=== PATIENT | female | born 1955 | race Caucasian/White ===

== ENCOUNTER 2017-04-10 15:33 | Emergency (ER) | payer MEDICARE, OTHER ==
[2017-04-10] MEDS ORDERED: NORMAL SALINE 1000 ML 1,000 ML IV ONE (16:03)
--- NOTE | 2017-04-10 16:07 | ER Document Report ---
ED Medical Screen (RME) - General Chief Complaint: Skin Problem Stated Complaint: POSSIBLE ABCESS Time Seen by Provider: 04/10/17 15:56 Notes: Patient recently had spinal surgery at [facility]. She states that she is also recently been seen an orthopedic surgeon at [facility] in [place]. She states she was seeing them for another injury to the hand. While there she mentioned that she felt she may have an abscess at the top of her spinal incision. The doctor at [facility], Dr. Scott, performed an incision and drainage and started the patient on antibiotics. Today she went back to see him for a dressing change and he states that he noticed he could now see bone. He states that he called neurosurgery who instructed the patient to come to the emergency department. He states that he instructed the patient to go to the hospital in [place] if possible. Patient here states that she feels fine has had no fever sweats or chills. I did call and speak with Dr. Scott, who can be reached at [phone]. TRAVEL OUTSIDE OF THE [place] IN LAST 30 DAYS: No - Related Data Allergies/Adverse Reactions: Penicillins Allergy (Verified 04/10/17 15:39) Anaphylaxis Home Medications: Current Home Medications Amphetamine [Adzenys Xr-Odt 18.8 mg Tablet] 20 mg PO ASDIR PRN 04/10/17 [History ] Clindamycin HCl 1 cap PO Q6H 04/10/17 [History] Diazepam [Diazepam] 1 tab PO BID 04/10/17 [History] Sertraline HCl [Sertraline HCl] 2 tab PO DAILY 04/10/17 [History] Sulfamethoxazole/Trimethoprim [Sulfamethoxazole-Tmp Ds Tablet] 1 tab PO Q12 [History] Past Medical History Renal/ Medical History: Denies: Hx Peritoneal Dialysis Physical Exam - Vital signs Vitals: Temp Pulse Resp BP Pulse Ox 98.3 F 96 18 167/93 H 98 04/10/17 15:39 04/10/17 15:39 04/10/17 15:39 04/10/17 15:39 04/10/17 15:39 Course - Vital Signs Vital signs: Temp Pulse Resp BP Pulse Ox 98.3 F 96 18 167/93 H 98 04/10/17 15:39 04/10/17 15:39 04/10/17 15:39 04/10/17 15:39 04/10/17 15:39
[2017-04-10] MEDS ORDERED: VANCOMYCIN HCL INJ 1000 MG VIAL IV ONE (16:08)
[2017-04-10 16:36] LABS: ABSOLUTE BASOPHILS # (AUTO) 0.1 10^3/uL (0.0-0.2); ABSOLUTE EOSINOPHILS # (AUTO) 0.2 10^3/uL (0.0-0.6); ABSOLUTE LYMPHOCYTES (AUTO) 1.5 10^3/uL (0.5-4.7); ABSOLUTE MONOCYTES (AUTO) 0.6 10^3/uL (0.1-1.4); ABSOLUTE NEUT (AUTO) 5.2 10^3/uL (1.7-8.2); BASOPHILS % (AUTO) 1.5 % (0-2); EOSINOPHILS % (AUTO) 2.3 % (0-6); HEMATOCRIT 42.1 % (36.0-47.0); HEMOGLOBIN 14.7 g/dL (12.0-15.5); LYMPHOCYTES % (AUTO) 19.9 % (13-45); MEAN CORPUSCULAR HEMOGLOBIN 35.4 pg (27.0-33.4); MEAN CORPUSCULAR VOLUME 101 fl (80-97); MONOCYTES % (AUTO) 7.9 % (3-13); RED BLOOD COUNT 4.17 10^6/uL (3.72-5.28); RED CELL DISTRIBUTION WIDTH 13.4 % (11.5-14.0); SEGMENTED NEUTROPHILS % (AUTO) 68.4 % (42-78); WHITE BLOOD COUNT 7.6 10^3/uL (4.0-10.5)
[2017-04-10 16:48] LABS: ALANINE AMINOTRANSFERASE 29 U/L (9-52); ALBUMIN 4.4 g/dL (3.5-5.0); ALKALINE PHOSPHATASE 134 U/L (38-126); ANION GAP 13 (5-19); ASPARTATE AMINO TRANSFERASE 25 U/L (14-36); BILIRUBIN,DIRECT 0.3 mg/dL (0.0-0.4); BILIRUBIN,TOTAL 0.3 mg/dL (0.2-1.3); BLOOD UREA NITROGEN 6 mg/dL (7-20); CALCIUM 9.7 mg/dL (8.4-10.2); CARBON DIOXIDE 24 mmol/L (22-30); CHLORIDE 100 mmol/L (98-107); CREATININE RESULT 0.78 mg/dL (0.52-1.25); GLUCOSE 87 mg/dL (75-110); POTASSIUM 4.3 mmol/L (3.6-5.0); SODIUM 136.8 mmol/L (137-145); TOTAL PROTEIN 7.2 g/dL (6.3-8.2)
--- NOTE | 2017-04-10 17:27 | ER Document Report ---
ED Skin Rash/Insect Bite/Abscs - General Chief Complaint: Skin Problem Stated Complaint: POSSIBLE ABCESS Time Seen by Provider: 04/10/17 15:56 Notes: The patient is a 61-year-old female, past medical history thoracic and sacral spinal fusion completed at [facility] [address] Fountain, presents with a worsening wound over her thoracic spine over the past week. She follows with an orthopedic surgeon at [facility] in [place] (Dr. Scott, who can be reached at [phone]) for another injury to the hand. While she was there , she mentioned that she felt she may have an abscess to the top of her spinal incision. The orthopedic surgeon performed an incision and drainage and start the patient on antibiotics. Today she went back for a dressing change and he noticed that he could now see bone. He called neurosurgery who instructed the patient to come to the emergency room. He states that he instructed the patient go to [facility] if possible, but she came to [facility]. She says that she has no fevers, sweats, chills, headache or neck stiffness. TRAVEL OUTSIDE OF THE [place] IN LAST 30 DAYS: No - Related Data Allergies/Adverse Reactions: Penicillins Allergy (Verified 04/10/17 15:39) Anaphylaxis Home Medications: Current Home Medications Amphetamine [Adzenys Xr-Odt 18.8 mg Tablet] 20 mg PO ASDIR PRN 04/10/17 [History ] Clindamycin HCl 1 cap PO Q6H 04/10/17 [History] Diazepam [Diazepam] 1 tab PO BID 04/10/17 [History] Sertraline HCl [Sertraline HCl] 2 tab PO DAILY 04/10/17 [History] Sulfamethoxazole/Trimethoprim [Sulfamethoxazole-Tmp Ds Tablet] 1 tab PO Q12 [History] Past Medical History - General Information source: Patient - Social History Smoking Status: Unknown if Ever Smoked Family History: Reviewed & Not Pertinent Patient has suicidal ideation: No Patient has homicidal ideation: No Renal/ Medical History: Denies: Hx Peritoneal Dialysis Review of Systems - Review of Systems Notes: REVIEW OF SYSTEMS: CONSTITUTIONAL: -fevers, -chills EENT: -eye pain, -difficulty swallowing, -nasal congestion CARDIOVASCULAR:-chest pain, -syncope. RESPIRATORY: -cough, -SOB GASTROINTESTINAL: -abdominal pain, - nausea, -vomiting, -diarrhea GENITOURINARY: -dysuria, -hematuria MUSCULOSKELETAL: -back pain, -neck pain SKIN: +back wound HEMATOLOGIC: -easy bruising or bleeding. LYMPHATIC: -swollen, enlarged glands. NEUROLOGICAL: -altered mental status or loss of consciousness, -headache, - neurologic symptoms PSYCHIATRIC: -anxiety, -depression. ALL OTHER SYSTEMS REVIEWED AND NEGATIVE. Physical Exam - Vital signs Vitals: Temp Pulse Resp BP Pulse Ox 98.3 F 96 18 167/93 H 98 04/10/17 15:39 04/10/17 15:39 04/10/17 15:39 04/10/17 15:39 04/10/17 15:39 - Notes Notes: PHYSICAL EXAMINATION: GENERAL: Well-appearing, well-nourished and in no acute distress. HEAD: Atraumatic, normocephalic. EYES: Pupils equal round and reactive to light, extraocular movements intact, sclera anicteric, conjunctiva are normal. ENT: nares patent, oropharynx clear without exudates. Moist mucous membranes. NECK: Normal range of motion, supple without lymphadenopathy LUNGS: Breath sounds clear to auscultation bilaterally and equal. No wheezes rales or rhonchi. HEART: Regular rate and rhythm without murmurs ABDOMEN: Soft, nontender, normoactive bowel sounds. No guarding, no rebound. No masses appreciated. EXTREMITIES: Normal range of motion, no pitting or edema. No cyanosis. NEUROLOGICAL: Cranial nerves grossly intact. Normal speech, normal gait. Normal sensory and motor exams. PSYCH: Normal mood, normal affect. SKIN: 2 cm open wound over upper thoracic region, spinous process visible, mild surrounding erythema Course - Re-evaluation Re-evalutation: Pt with worsening open thoracic surgical wound and spinous process now visible. No leukocytosis, fever or meningeal signs at this time. IV vancomycin started. No neurosurgery nutrition specialist at [facility]. Patient's neurosurgeon is Dr. Fountain. 04/10/17 17:[address] Crescencio Ramirez (Neurosurgeon nutrition specialist at [facility]). Dr. Fountain no longer works at [facility]. He works in [place] and recommends speaking to Dr. Fountain, since this is a post-op complication. 04/10/17 17:[address] Fountain's office and awaiting callback to discuss transfer options. 04/10/17 18:[address] Fountain surgical center. He only has an outpatient surgical center and does not consult at a hospital. Placed call to [facility] transfer center and awaiting callback. 04/10/17 20:[address] Hendrickson ([facility] Hospitalist) and he recommends speaking to the neurosurgeon first, but he will accept patient if the neurosurgeon agrees. Spoke to Dr. Frausto (Neurosurgeon at [facility]) and he will see patient when she arrives. Awaiting bed assignmnet. Will continue Vancomycin IV. - Vital Signs Vital signs: Temp Pulse Resp BP Pulse Ox 97.6 F 82 16 141/70 H 94 04/10/17 19:17 04/10/17 19:17 04/10/17 21:51 04/10/17 21:37 04/10/17 21:51 - Laboratory Result Diagrams: 04/10/17 16:14 04/10/17 16:14 Laboratory results interpreted by me: 04/10/17 04/10/17 16:14 16:14 MCV 101 H MCH 35.4 H Plt Count 566 H Sodium 136.8 L BUN 6 L Alkaline Phosphatase 134 H - Diagnostic Test Radiology reviewed: Image reviewed, Reports reviewed Radiology results interpreted by me: Thoracic x-ray: Extensive postsurgical changes. Degenerative changes scoliosis and severe osteopenia. No obvious acute changes. Discharge - Discharge Clinical Impression: Post-operative wound abscess Qualifiers: Encounter type: initial encounter Qualified Code(s): T81.4XXA - Infection following a procedure, initial encounter Condition: Stable Disposition: [facility] Referrals: YENI RICO MD [Primary Care Provider] - Follow up as needed
[2017-04-10] MEDS ORDERED: VANCOMYCIN HCL INJ 1000 MG VIAL IV SCH (20:30)
--- NOTE | 2017-04-10 21:16 | RADIOLOGY REPORT (SQ) ---
EXAM DESCRIPTION: T SPINE AP/LAT COMPLETED DATE/TIME: 04/10/2017 8:55 pm REASON FOR STUDY: open wound COMPARISON: None. NUMBER OF VIEWS: Two views. TECHNIQUE: AP and lateral radiographic images acquired of the thoracic spine. LIMITATIONS: None. FINDINGS: MINERALIZATION: Severe osteopenia. ALIGNMENT: Mild scoliosis. VERTEBRAE: No obvious fractures. DISCS: Multilevel degenerative disc disease. HARDWARE: Extensive spine hardware with bridging rods and pedicle screws. MEDIASTINUM AND SOFT TISSUES: Normal heart size and aortic contour. No soft tissue abnormality. VISUALIZED LUNG BULL: Clear. OTHER: No other significant finding. IMPRESSION: Extensive postsurgical changes. Degenerative changes scoliosis and severe osteopenia. No obvious acute changes. TECHNICAL DOCUMENTATION: JOB ID: [id number] [employer]- All Rights Reserved
[2017-04-10 22:22] VITALS: BP 131/65
== END 2017-04-10 22:48 | disposition short-term general hospital (02) ==
LOC: ER 15:33
DX: T81.4XXA Infection following a procedure, initial encounter (principal); L02.91 Cutaneous abscess, unspecified; Z98.1 Arthrodesis status; M47.9 Spondylosis, unspecified; M85.88 Other specified disorders of bone density and structure, other site; Z87.892 Personal history of anaphylaxis; Z88.0 Allergy status to penicillin
CPT/HCPCS: 99285; 96365; 36415; 87040; 85025; 80053; 72070; J7030; J3370